=== PATIENT | male | born 1950 | race Caucasian/White ===

== ENCOUNTER 2022-08-01 11:34 | Emergency (ER) | payer OTHER ==
[2022-08-01] MEDS ORDERED: Ondansetron ODT 4 MG TAB ONE ×2 (12:12→14:06)
== END 2022-08-01 14:10 | disposition home or self-care (01) ==
LOC: MADERS 11:34
DX: R11.2 Nausea with vomiting, unspecified (principal)
CPT/HCPCS: 99283; Q0162